=== PATIENT | female | born 1960 | race Caucasian/White ===

== ENCOUNTER 2019-08-31 01:27 | Emergency (ER) | payer BC ==
--- NOTE | 2019-08-31 02:41 | ER Document Report ---
ED General - General Chief Complaint: Passed Out Prior to Arrival Stated Complaint: POSSIBLE SYNCOPE Time Seen by Provider: 08/31/19 02:40 Primary Care Provider: BRYSON SINHA NP-C [Primary Care Provider] - Follow up as needed Mode of Arrival: Medic Information source: Patient Notes: 58-year-old female arrives with daughter; patient ate blueberries with hotdogs and with her IBS diverticulitis she became quite diarrhea blue along with the Augmentin she was taking patient had 105 systolic pressure. We suspect she had a syncopal episode and passed out at home TRAVEL OUTSIDE OF THE [place] IN LAST 30 DAYS: No - HPI Onset: Just prior to arrival Onset/Duration: Sudden Quality of pain: Sharp Severity: Severe Pain Level: 5 Associated symptoms: Nonproductive cough, Fever, Headache Exacerbated by: Movement Similar symptoms previously: No Recently seen / treated by doctor: No - Related Data Allergies/Adverse Reactions: Egg Derived Allergy (Verified 08/31/19 03:59) doxycycline Adverse Reaction (Verified 08/31/19 03:59) pseudoephedrine Adverse Reaction (Verified 08/31/19 03:59) Home Medications: omeprazole, gabapentin, mobic, atarax,buspar, trazadone, mvi,omega 3, magnesium,calcium,augmentin, micinex Past Medical History - General Information source: Patient, Relative - Patient's daughter is EMS. Main history from daughter. Also patient is good historian. Daughter reports she was working her shift when she got a call from Krzysztof her boyfriend who informed that the patient was getting off the floor of the bathroom. Patient's last thoughts as she was walking into the bathroom was a thunderbolt hitting right on the top of her head and she went down and awoke next to the tub. She complains of pain to her left shoulder and severe bitemporal pain radiating to her occipital and dorsal neck. Her sister from a CVA many years ago. Patient was diagnosed Saturday with a URI and placed on Augmentin. Her flu and strep were negative at that time. - Social History Smoking Status: Former Smoker Cigarette use (# per day): No Chew tobacco use (# tins/day): No Smoking Education Provided: No Frequency of alcohol use: None Lives with: Alone Family History: Reviewed & Not Pertinent Patient has suicidal ideation: No Patient has homicidal ideation: No Review of Systems - Review of Systems Constitutional: Fever, Malaise, Weakness EENT: Blurred vision Cardiovascular: No symptoms reported Respiratory: No symptoms reported Gastrointestinal: Abdominal pain, Diarrhea, Other - Patient has a history of diverticulitis and according to daughter stays on the toilet. Patient also has been taking ginkgo biloba as well as at least 12 other medications. She also has a history of HPV DC breast reduction and restless leg syndrome Physical Exam - Vital signs Vitals: Temp Pulse Resp BP Pulse Ox 97.5 F 66 16 124/61 97 08/31/19 01:32 08/31/19 01:32 08/31/19 01:32 08/31/19 01:32 08/31/19 01:32 - HEENT Head: Normocephalic Eyes: Normal Conjunctiva: Normal Cornea: Normal Extraocular movements intact: Yes Eyelashes: Normal Pupils: PERRL Mouth/Lips: Normal Mucous membranes: Normal - Respiratory Respiratory status: No respiratory distress, Other - Occasional cough but clear to auscultation Chest status: Nontender Breath sounds: Nonproductive cough Chest palpation: Normal - Cardiovascular Rhythm: Regular Heart sounds: Normal auscultation Murmur: No Friction rub: No Gonzalo's crunch: No - Abdominal Inspection: Normal Distension: No distension Bowel sounds: Hyperactive - Back Back: Normal - Extremities General upper extremity: Tender - Left shoulder pain on palpation. Patient thinks he may have landed on his left shoulder in the bathroom General lower extremity: Normal inspection - Neurological Neuro grossly intact: Yes Cognition: Normal Orientation: AAOx4 Haley Coma Scale Eye Opening: Spontaneous Haley Coma Scale Verbal: Oriented Haley Coma Scale Motor: Obeys Commands Haley Coma Scale Total: 15 Speech: Normal Cranial nerves: Normal Cerebellar coordination: Normal Additional motor exam normals: Equal radarman - Psychological Associated symptoms: Normal affect, Normal mood - Skin Skin Temperature: Warm Skin Moisture: Dry Course - Vital Signs Vital signs: Temp Pulse Resp BP Pulse Ox 97.5 F 66 15 104/68 100 08/31/19 01:32 08/31/19 01:32 08/31/19 06:01 08/31/19 06:00 08/31/19 06:00 - Laboratory Result Diagrams: 08/31/19 02:31 08/31/19 02:31 Laboratory results interpreted by me: 08/31/19 02:31 Glucose 118 H - Diagnostic Test Radiology reviewed: Reports reviewed - EKG Interpretation by Me EKG shows normal: Sinus rhythm Rate: Normal Critical Care Note - Critical Care Note Total time excluding time spent on procedures (mins): 90 Discharge - Discharge Clinical Impression: Atypical syncope Headache Qualifiers: Headache type: unspecified Headache chronicity pattern: unspecified pattern Intractability: not intractable Qualified Code(s): R51 - Headache URI (upper respiratory infection) Qualifiers: URI type: acute pharyngitis Pharyngitis/tonsillitis etiology: unspecified etiology Qualified Code(s): J02.9 - Acute pharyngitis, unspecified Hypotension Qualifiers: Hypotension type: unspecified hypotension type Qualified Code(s): I95.9 - Hypotension, unspecified Condition: Good Disposition: HOME, SELF-CARE Instructions: Upper Respiratory Illness ([facility]) Additional Instructions: I advised lactobacillus with pectin for your diarrhea. Avoid quick sudden movements because of the syncopal episode at home.take fluids as needed; avoid hot dogs. be aware of severe diarrhea from augmentin. return to ER if symptoms worsen. follow with personal doctor this week Prescriptions: Lactobacillus Acidophilus/Pect [Acidophilus-Pectin Capsule] 1 each PO DAILY PRN #1 bottle PRN Reason: Referrals: BRYSON SINHA NP-C [Primary Care Provider] - Follow up as needed
[2019-08-31 02:44] LABS: ABSOLUTE EOSINOPHILS # (AUTO) 0.4 10^3/uL (0.0-0.6); ABSOLUTE LYMPHOCYTES (AUTO) 2.6 10^3/uL (0.5-4.7); ABSOLUTE MONOCYTES (AUTO) 0.5 10^3/uL (0.1-1.4); ABSOLUTE NEUT (AUTO) 3.1 10^3/uL (1.7-8.2); BASOPHILS % (AUTO) 0.6 % (0-2); EOSINOPHILS % (AUTO) 5.5 % (0-6); HEMATOCRIT 39.4 % (36.0-47.0); HEMOGLOBIN 13.6 g/dL (12.0-15.5); LYMPHOCYTES % (AUTO) 38.8 % (13-45); MEAN CORPUSCULAR HEMOGLOBIN 30.5 pg (27.0-33.4); MEAN CORPUSCULAR HGB CONC 34.6 g/dL (32.0-36.0); MEAN CORPUSCULAR VOLUME 88 fl (80-97); PLATELET COUNT 327 10^3/uL (150-450); RED BLOOD COUNT 4.47 10^6/uL (3.72-5.28); RED CELL DISTRIBUTION WIDTH 13.2 % (11.5-14.0); SEGMENTED NEUTROPHILS % (AUTO) 47.1 % (42-78); TOTAL CELLS COUNTED % (AUTO) 100 %; WHITE BLOOD COUNT 6.6 10^3/uL (4.0-10.5)
[2019-08-31 03:01] LABS: ALBUMIN 4.1 g/dL (3.5-5.0); ALKALINE PHOSPHATASE 76 U/L (38-126); ANION GAP 9 (5-19); ASPARTATE AMINO TRANSFERASE 20 U/L (14-36); BILIRUBIN,DIRECT 0.2 mg/dL (0.0-0.4); BILIRUBIN,TOTAL 0.2 mg/dL (0.2-1.3); BLOOD UREA NITROGEN 16 mg/dL (7-20); CALCIUM 9.5 mg/dL (8.4-10.2); CARBON DIOXIDE 27 mmol/L (22-30); CHLORIDE 103 mmol/L (98-107); CREATINE KINASE 61 U/L (30-135); GLUCOSE 118 mg/dL (75-110); POTASSIUM 4.4 mmol/L (3.6-5.0); TOTAL PROTEIN 6.9 g/dL (6.3-8.2)
[2019-08-31 03:13] LABS: CREATINE KINASE MB 1.01 ng/mL (<4.55)
[2019-08-31 03:26] LABS: TROPONIN I < 0.012 ng/mL
[2019-08-31] MEDS ORDERED: FENTANYL CITRATE INJ/PF 100 MCG/2 ML AMPUL IV ONE (03:42)
[2019-08-31] MEDS ORDERED: PROMETHAZINE HCL INJ 25 MG/1 ML VIAL IV ONE (03:45)
--- NOTE | 2019-08-31 03:55 | RADIOLOGY REPORT (SQ) ---
EXAM DESCRIPTION: CT CERVICAL SPINE WITHOUT IV CONTRAST COMPLETED DATE/TME: 08/31/2019 03:13 CLINICAL HISTORY: 58 years Female, syncopy Comparison: None. Technique: No contrast. Coronal and sagittal reformat. This exam was performed according to our departmental dose-optimization program, which includes automated exposure control, adjustment of the mA and/or kV according to patient size and/or use of iterative reconstruction technique.[facility]: Dose Right [facility]: CareDose [facility]: Dose Right [facility]: Teradose 4D [facility]: CLARED LIMITATIONS: None Findings: 2.3 cm left thyroid lesion. Recommend thyroid ultrasound. Small anterior osteophyte at the C5 upper endplate. Normal alignment. Normal curvature. No fracture. Normal vertebral heights. No significant bony spinal or foraminal canal compromise. Partially imaged nuchal soft tissues, inferior cranium, and upper thorax appear otherwise grossly intact. IMPRESSION: 1. 2.3 cm left thyroid lesion. Recommend thyroid ultrasound. 2. No acute posttraumatic findings of the cervical spine.
--- NOTE | 2019-08-31 04:05 | RADIOLOGY REPORT (SQ) ---
Acute abdominal series on 08/31/2019 at 3:45 AM CLINICAL INDICATION: Generalized abdominal pain COMPARISON: None FINDINGS: CHEST: There is focal eventration of the diaphragm bilaterally. The lungs are clear. Cardiac, hilar and mediastinal contours are within normal limits. Pulmonary vascularity is within normal limits. ABDOMEN: There is no free air. Bowel gas pattern is unremarkable. No increased stool suggests constipation is noted. No abnormal calcification or mass effect is noted. No bony abnormality is noted. IMPRESSION: 1. No acute cardiopulmonary disease. 2. Nonspecific abdomen.
--- NOTE | 2019-08-31 04:13 | RADIOLOGY REPORT (SQ) ---
EXAM DESCRIPTION: CT HEAD WITHOUT IV CONTRAST COMPLETED DATE/TME: 08/31/2019 03:13 CLINICAL HISTORY: 58 years, Female, syncope COMPARISON: None. TECHNIQUE: Axial CT images of the brain were obtained without contrast. Sagittal and coronal performed. DL 1096 Images stored on PACS. All CT scanners at this facility use dose modulation, iterative reconstruction, and/or weight based dosing when appropriate to reduce radiation dose to as low as reasonably achievable (ALARA). [facility]: Dose Right [facility]: CareDose [facility]: Dose Right [facility]: Teradose 4D [facility]: [employer] LIMITATIONS: None. FINDINGS: There is no acute cortical infarct, hemorrhage, mass, edema, hydrocephalus, or extra-axial fluid collection. The andrea-white matter differentiation is preserved. The paranasal sinuses and mastoid air cells are clear. There is no acute fracture. IMPRESSION: No acute intracranial abnormality. TECHNICAL DOCUMENTATION: Quality ID # [id number]: Final reports with documentation of one or more dose reduction techniques (e.g., Automated exposure control, adjustment of the mA and/or kV according to patient size, use of iterative reconstruction technique) copyright 2011 [employer]- All Rights Reserved
--- NOTE | 2019-08-31 04:22 | RADIOLOGY REPORT (SQ) ---
EXAM DESCRIPTION: XR HUMERUS COMPLETED DATE/TME: 08/31/2019 03:28 CLINICAL HISTORY: 58 years, Female, fall COMPARISON: None. NUMBER OF VIEWS: Two TECHNIQUE: Two views of the left humerus LIMITATIONS: None. FINDINGS: There is no acute fracture or dislocation. No radiopaque foreign body. No large soft tissue swelling. IMPRESSION: No acute fracture or dislocation. copyright 2010 [employer]- All Rights Reserved
[2019-08-31 04:52] LABS: APPEARANCE,URINE CLEAR; BILIRUBIN,URINE NEGATIVE (NEGATIVE); COLOR,URINE STRAW; GLUCOSE, URINE NEGATIVE (NEGATIVE); KETONES,URINE NEGATIVE (NEGATIVE); LEUKOCYTE ESTERASE,URINE NEGATIVE (NEGATIVE); NITRITE,URINE NEGATIVE (NEGATIVE); PROTEIN,URINE NEGATIVE (NEGATIVE); URINE SPECIFIC GRAVITY 1.006; UROBILINOGEN,URINE NEGATIVE mg/dL (<2.0)
[2019-08-31 06:22] VITALS: BP 104/68
[2019-08-31 06:37] LABS: A TYPE INFLUENZA AG NEGATIVE (NEGATIVE); B INFLUENZA AG NEGATIVE (NEGATIVE)
--- NOTE | 2019-08-31 07:36 | EKG REPORT ---
SEVERITY:- BORDERLINE ECG - SINUS RHYTHM BORDERLINE T ABNORMALITIES, ANT-LAT LEADS : Confirmed by: Inder Yost MD 31-Aug-2019 07:36:06
== END 2019-08-31 06:46 | disposition home or self-care (01) ==
LOC: ER 01:27
DX: R55 Syncope and collapse (principal); J02.9 Acute pharyngitis, unspecified; I95.9 Hypotension, unspecified; R05 Cough; R51 Headache; R50.9 Fever, unspecified
CPT/HCPCS: 93005; 99291; 99292; 96374; 96375; 36415; 82553; 82550; 85025; 80053; 81001; 84484; 87804; 74022; 73060; 70450; 72125; 93010; J3010; J2550

== ENCOUNTER 2020-01-25 14:05 | Emergency (ER) | payer OTHER, BC ==
--- NOTE | 2020-01-25 14:51 | ER Document Report ---
ED Extremity Problem, Lower - General Chief Complaint: Leg Pain Stated Complaint: LEG PAIN Time Seen by Provider: 01/25/20 14:44 Primary Care Provider: BRYSON SINHA NP-C [Primary Care Provider] - Follow up as needed Notes: CHIEF COMPLAINT: 59-year-old female presenting to the emergency department 10 days post injury to the right calf. Patient states the table came down and struck her in the proximal calf muscle region. Patient developed pain swelling and bruising to the area but states it has continued even after 10 days in the lower portion of the leg and ankle. She states that she lives with paramedics and they concerned her about DVT so she now presents for evaluation no chest pain shortness of breath HPI: ROS: See HPI - all other systems were reviewed and are otherwise negative Constitutional: no fever Cardiovascular: no chest pain Resp: no SOB, no cough Integumentary: no rash Allergy: no hives Musculoskeletal: + extremity pain or swelling Neurological: no numbness/tingling, no weakness MEDICATIONS: I agree with the patient medications as charted by the RN. ALLERGIES: I agree with the allergies as charted by the RN. PAST MEDICAL HISTORY/PAST SURGICAL HISTORY: Reviewed and agree as charted by RN. SOCIAL HISTORY: Reviewed and agree as charted by RN. FAMILY HISTORY: No significant familial comorbid conditions directly related to patient complaint EXAM: Reviewed vital signs as charted by RN. CONSTITUTIONAL: Alert and oriented and responds appropriately to questions. Well-appearing; well-nourished HEAD: Normocephalic; atraumatic EYES: Conjunctivae clear, sclerae non-icteric ENT: normal nose; no rhinorrhea; moist mucous membranes NECK: Supple without meningismus CARD: Capillary refill less than 3 seconds; symmetric distal pulses RESP: Normal chest excursion without splinting or tachypnea ABD/GI: Normal bowel sounds; non-distended; soft, non-tender, no rebound, no guarding; no palpable organomegaly or masses. BACK: The back appears normal and is non-tender to palpation, there is no CVA tenderness EXT: Normal ROM in all joints; no visible circumferential edema to the right lower extremity. There is very slight bruising on the posterior and anterior aspects of the distal right lower extremity with mild tenderness on palpation. No direct proximal fibular pain on palpation of the right lower extremity. No medial or lateral malleolus tenderness on palpation. Dorsalis pedis and posterior tibial pulses are present in the right ankle and foot. Negative Mensah test SKIN: Normal color for age and race; warm; dry; good turgor; no acute lesions noted NEURO: Moves all extremities equally; Motor and sensory function intact PSYCH: The patient's mood and manner are appropriate. Grooming and personal hygiene are appropriate. MDM: 59-year-old female who is not on blood thinners concerned about bruising in the lower leg after 10 days from injury. This is still likely musculoskeletal in nature but given her concerns will obtain a venous Doppler and an x-ray TRAVEL OUTSIDE OF THE [place] IN LAST 30 DAYS: No - Related Data Allergies/Adverse Reactions: Egg Derived Allergy (Verified 08/31/19 03:59) doxycycline Adverse Reaction (Verified 08/31/19 03:59) pseudoephedrine Adverse Reaction (Verified 08/31/19 03:59) Past Medical History - Social History Smoking Status: Unknown if Ever Smoked Family History: Reviewed & Not Pertinent Physical Exam - Vital signs Vitals: Temp Pulse Resp BP Pulse Ox 97.9 F 63 18 120/69 97 01/25/20 14:10 01/25/20 14:10 01/25/20 14:10 01/25/20 14:10 01/25/20 14:10 Course - Re-evaluation Re-evalutation: 01/25/20 17:06 X-ray and Doppler were negative for fracture or DVT. [facility] 01/25/20 17:06 Compartments are otherwise soft, no suggestion of compartment syndrome - Vital Signs Vital signs: Temp Pulse Resp BP Pulse Ox 97.9 F 63 18 120/69 97 01/25/20 14:44 01/25/20 14:10 01/25/20 14:10 01/25/20 14:10 01/25/20 14:10 Discharge - Discharge Clinical Impression: Contusion of leg, right Qualifiers: Encounter type: initial encounter Qualified Code(s): S80.11XA - Contusion of right lower leg, initial encounter Condition: Stable Disposition: HOME, SELF-CARE Instructions: Contusion ([facility]) Additional Instructions: Ice and elevate the right leg to help with bruising and swelling. Take Motrin or Tylenol for pain. Follow-up with your primary care provider or orthopedics for further evaluation and treatment as needed call for appointment. X-ray did not show evidence of a fracture. The Doppler study was negative for DVT or blood clot Referrals: BRYSON SINHA, SHEN-C [Primary Care Provider] - Follow up as needed RAMILA QUINTERO DO [ACTIVE STAFF] - Follow up as needed
--- NOTE | 2020-01-25 15:15 | RADIOLOGY REPORT (SQ) ---
EXAM DESCRIPTION: TIBIA FIBULA RIGHT IMAGES COMPLETED DATE/TIME: 01/25/2020 2:59 pm REASON FOR STUDY: injury COMPARISON: None. NUMBER OF VIEWS: Two views. TECHNIQUE: Two radiographic images acquired of the right tibia and fibula to include the knee and an kle in at least one projection. LIMITATIONS: None. FINDINGS: MINERALIZATION: Decreased. BONES: No acute fracture or dislocation. Large superior and plantar calcaneal enthesophytes. No benito picious osseous lesions. Tricompartment osteophytosis at the knee. SOFT TISSUES: No obvious swelling or foreign body. OTHER: No other significant finding. IMPRESSION: No evidence of acute bony abnormality of the right tibia and fibula. Degenerative changes at the knee and ankle with large superior plantar calcaneal enthesophytes. TECHNICAL DOCUMENTATION: JOB ID: [id number] 2010 [employer]- All Rights Reserved Reading location - IP/workstation name: [email or web address]
--- NOTE | 2020-01-25 17:02 | RADIOLOGY REPORT (SQ) ---
EXAM DESCRIPTION: VENOUS UNILATERAL LOWER IMAGES COMPLETED DATE/TIME: 01/25/2020 4:54 pm REASON FOR STUDY: RLE r/o DVT COMPARISON: None. TECHNIQUE: Dynamic and static andrea scale and color images acquired of the right leg venous system. S elected spectral images acquired with additional compression and augmentation maneuvers. The contrala teral common femoral vein and saphenofemoral junction were also imaged. Images stored on PACS. LIMITATIONS: None. FINDINGS: COMMON FEMORAL: Normal phasicity, compression and augmentation. No visualized echogenic ma terial on andrea scale. No defects on color images. FEMORAL: Normal compression and augmentation. No visualized echogenic material on andrea scale. No defe cts on color images. POPLITEAL: Normal compression, augmentation. No visualized echogenic material on andrea scale. No defec ts on color images. CALF VESSELS: Normal compression, augmentation. No visualized echogenic material on andrea scale. No de fects on color images. GSV and SSV: Normal compression, augmentation. No visualized echogenic material on andrea scale. No def ects on color images. ANY DEEP VENOUS INSUFFICIENCY: Not evaluated. ANY EVIDENCE OF POPLITEAL CYST: No. OTHER: No other significant finding. CONTRALATERAL COMMON FEMORAL VEIN AND SAPHENOFEMORAL JUNCTION: Normal phasicity, compression and augmentation. No visualized echogenic material on andrea scale. No de fects on color images. IMPRESSION: NO EVIDENCE DVT OR SVT IN THE RIGHT LEG. TECHNICAL DOCUMENTATION: JOB ID: [id number] 2010 [employer]- All Rights Reserved Reading location - IP/workstation name: [email or web address]
[2020-01-25 17:23] VITALS: BP 124/70
== END 2020-01-25 17:26 | disposition home or self-care (01) ==
LOC: ER 14:05
DX: S80.11XA Contusion of right lower leg, initial encounter (principal); M79.89 Other specified soft tissue disorders; M79.604 Pain in right leg; M25.572 Pain in left ankle and joints of left foot; X58.XXXA Exposure to other specified factors, initial encounter; Z88.8 Allergy status to other drugs, medicaments and biological substances
CPT/HCPCS: 93971; 99284